=== PATIENT | male | born 1970 | race Caucasian/White ===

== ENCOUNTER 2021-09-14 22:24 | Emergency (ER) | payer MEDICAID ==
[~2021-09-14] VITALS: Ht 175.3 cm; Wt 86.0 kg
[2021-09-14] MEDS ORDERED: ONDANSETRON HCL 4MG/2ML INJ IV STA (23:28)
[2021-09-14] MEDS ORDERED: MORPHINE SULFATE 4 MG/ML CPJ (NOT FOR IM USE) IV STA (23:28)
[2021-09-14] MEDS ORDERED: SODIUM CHLORIDE 0.9% 1,000 ML IV ONE (23:30)
[2021-09-15] LABS: BASOPHILS % 0.5 % (0.0-2.0); EOSINOPHILS % 0.1 % (0.0-5.0); HEMATOCRIT. 48.5 % (42.0-52.0); HEMOGLOBIN. 16.1 g/dL (14.0-18.0); LYMPHOCYTES % 9.6 % (20.0-50.0); MEAN CORPUSCULAR HEMOGLOBIN 29.5 pg (28.0-32.0); MEAN CORPUSCULAR VOLUME 88.8 fL (80.0-94.0); MEAN PLATELET VOLUME 8.2 fl (7.4-10.4); MONOCYTES % 3.8 % (2.0-8.0); PLATELET 222 x1000/uL (130-400); RED BLOOD CELL COUNT 5.46 mill/uL (4.7-6.1); RED CELL DISTRIBUTION WIDTH 13.7 % (11.6-14.6)
[2021-09-15 00:02] LABS: CHLORIDE 109 mEq/L (98-107)
[2021-09-15 00:55] LABS: CLARITY URINE CLEAR (CLEAR); COLOR URINE YELLOW (YELLOW); KETONES URINE 1+ (NEGATIVE); LEUKOCYTE ESTERASE URINE NEGATIVE (NEGATIVE); NITRITE URINE NEGATIVE (NEGATIVE); OCCULT BLOOD URINE 1+ (NEGATIVE); PROTEIN URINE NEGATIVE (NEGATIVE); SPECIFIC GRAVITY URINE 1.023 (1.005-1.030); UROBILINOGEN URINE 0.2 E.U./dL (0.2-1.0)
[2021-09-15] MEDS ORDERED: CEPH500T MT (05:19)
[2021-09-15] MEDS ORDERED: TAMS-11 MT (05:19)
[2021-09-15 05:39] VITALS: BP 149/96
[2021-09-15] MEDS ORDERED: IOHEXOL-300 100 ML BOTTLE ONE (06:30)
== END 2021-09-15 05:41 | disposition home or self-care (01) ==
LOC: ER 22:24
DX: N13.0 Hydronephrosis with ureteropelvic junction obstruction (principal); N39.0 Urinary tract infection, site not specified; B96.89 Other specified bacterial agents as the cause of diseases classified elsewhere; E87.8 Other disorders of electrolyte and fluid balance, not elsewhere classified
CPT/HCPCS: 36415; 74177; 80053; 81003; 83690; 85025; 93005; 96374; 96375; 99285; J2270; J2405; J7030; Q9967